=== PATIENT | female | born 1980 | race Caucasian/White ===

== ENCOUNTER 2016-09-24 13:41 | Emergency (ER) | payer MEDICAID ==
[~2016-09-24] VITALS: Ht 170.2 cm; Wt 85.7 kg
[2016-09-24 18:10] VITALS: BP 104/64
== END 2016-09-24 18:10 | disposition home or self-care (01) ==
LOC: ED 13:41
DX: J04.0 Acute laryngitis (principal)
CPT/HCPCS: J1885; J7613; J7644

== ENCOUNTER 2017-03-07 08:16 | Emergency (ER) | payer OTHER ==
[~2017-03-07] VITALS: Ht 170.2 cm; Wt 77.1 kg
[2017-03-07 09:42] VITALS: BP 116/74
== END 2017-03-07 09:42 | disposition home or self-care (01) ==
LOC: ED 08:16
DX: J20.9 Acute bronchitis, unspecified (principal)
CPT/HCPCS: Q0092

== ENCOUNTER 2017-03-14 16:40 | Emergency (ER) | payer OTHER ==
[~2017-03-14] VITALS: Ht 170.2 cm; Wt 84.8 kg
[2017-03-14 16:57] VITALS: Ht 170.2 cm; Wt 84.8 kg
[2017-03-14 18:45] VITALS: BP 116/65
== END 2017-03-14 18:45 | disposition home or self-care (01) ==
LOC: ED 16:40
DX: B34.9 Viral infection, unspecified (principal); J45.909 Unspecified asthma, uncomplicated

== ENCOUNTER 2017-09-30 17:41 | Emergency (ER) | payer OTHER ==
[~2017-09-30] VITALS: Ht 170.2 cm; Wt 80.0 kg
[2017-09-30 18:01] VITALS: Ht 170.2 cm; Wt 80.0 kg
[2017-09-30 21:40] VITALS: BP 129/77
== END 2017-09-30 21:40 | disposition home or self-care (01) ==
LOC: ED 17:41
DX: R05 Cough (principal); R07.89 Other chest pain
CPT/HCPCS: J7613; J7644

== ENCOUNTER 2017-11-20 07:00 | Emergency (ER) | payer OTHER ==
[~2017-11-20] VITALS: Ht 170.2 cm; Wt 77.6 kg
[2017-11-20 07:11] VITALS: Ht 170.2 cm; Wt 77.6 kg
[2017-11-20 07:58] LABS: PLATELET COUNT 277 x10^3mcL (130-400); RED CELL DISTRIBUTION WIDTH 13.2 % (11.5-14.5)
[2017-11-20 08:29] LABS: MONOCYTE 8 % (0-7); SEGMENTED NEUTROPHILS 54 % (37-75)
[2017-11-20 08:30] LABS: BAND NEUTROPHIL 3 % (0-10); BASOPHIL 0 % (0-2); rbc morphology (normal/abnorm) NORMAL (NORMAL)
[2017-11-20 08:31] LABS: PLATELET MORPHOLOGY PLATELETS NORMAL
[2017-11-20 08:32] LABS: CALCIUM 9.2 mg/dL (8.5-10.1); CARBON DIOXIDE 26.1 mmol/L (21-32); CHLORIDE SERUM 103 mmol/L (98-107); CREATININE SERUM 0.7 mg/dL (0.6-1.0); GFR1 > 60 mL/min; GLUCOSE SERUM 98 mg/dL (74-106); SODIUM SERUM 136 mmol/L (136-145)
[2017-11-20 08:37] LABS: ALBUMIN 3.9 g/dL (3.4-5.0); ALKALINE PHOSPHATASE 55 U/L (46-116); ALT/SGPT 20 U/L (14-59); AST/SGOT 21 U/L (15-37); BILIRUBIN TOTAL 0.59 mg/dL (0.20-1.00); CHOLESTEROL 187 mg/dL (<200); PHOSPHOROUS 3.2 mg/dL (2.5-4.9); TOTAL PROTEIN, SERUM 8.2 g/dL (6.4-8.2); URIC ACID 3.9 mg/dL (2.6-6.0)
[2017-11-20 08:41] LABS: HDL CHOLESTEROL 61 mg/dL (40-60)
[2017-11-20 09:18] VITALS: BP 128/72
== END 2017-11-20 09:18 | disposition home or self-care (01) ==
LOC: ED 07:00
PROVIDERS: Emergency Medicine
DX: F41.9 Anxiety disorder, unspecified (principal)
CPT/HCPCS: 83880; J1885; Q0092; Q0162

== ENCOUNTER 2017-11-26 14:31 | Emergency (ER) | payer OTHER ==
[~2017-11-26] VITALS: Ht 170.2 cm; Wt 75.3 kg
[2017-11-26 14:40] VITALS: Ht 170.2 cm; Wt 75.3 kg
[2017-11-26 16:46] LABS: BASOPHIL % 1.5 % (0-2); PLATELET COUNT 353 x10^3mcL (130-400); RED CELL DISTRIBUTION WIDTH 12.7 % (11.5-14.5)
[2017-11-26 17:25] LABS: CALCIUM 9.6 mg/dL (8.5-10.1); CARBON DIOXIDE 24.2 mmol/L (21-32); CHLORIDE SERUM 104 mmol/L (98-107); CREATININE SERUM 0.9 mg/dL (0.6-1.0); GFR1 > 60 mL/min; GLUCOSE SERUM 107 mg/dL (74-106); POTASSIUM SERUM 4.1 mmol/L (3.5-5.1); SODIUM SERUM 141 mmol/L (136-145)
[2017-11-26 17:30] LABS: ALBUMIN 4.7 g/dL (3.4-5.0); ALKALINE PHOSPHATASE 53 U/L (46-116); ALT/SGPT 21 U/L (14-59); AST/SGOT 12 U/L (15-37); LIPASE 94 IU/L (73-393)
[2017-11-26 21:13] VITALS: BP 128/80
== END 2017-11-26 21:13 | disposition home or self-care (01) ==
LOC: ED 14:31
PROVIDERS: Emergency Medicine
DX: R07.2 Precordial pain (principal); R06.00 Dyspnea, unspecified; R11.10 Vomiting, unspecified; R19.7 Diarrhea, unspecified; F41.9 Anxiety disorder, unspecified
CPT/HCPCS: 36415; 83880; 85378; Q0092

== ENCOUNTER 2017-11-28 14:18 | Emergency (ER) | payer OTHER ==
[~2017-11-28] VITALS: Ht 177.8 cm; Wt 74.8 kg
[2017-11-28 14:35] VITALS: Ht 177.8 cm; Wt 74.8 kg
[2017-11-28 16:07] VITALS: BP 128/61
== END 2017-11-28 16:07 | disposition home or self-care (01) ==
LOC: ED 14:18
DX: K21.9 Gastro-esophageal reflux disease without esophagitis (principal); F41.9 Anxiety disorder, unspecified; B96.81 Helicobacter pylori [H. pylori] as the cause of diseases classified elsewhere; J45.909 Unspecified asthma, uncomplicated

== ENCOUNTER 2019-05-13 15:50 | Emergency (ER) | payer OTHER ==
[~2019-05-13] VITALS: Ht 170.2 cm; Wt 73.5 kg
[2019-05-13 16:14] VITALS: Ht 170.2 cm; Wt 73.5 kg
[2019-05-13 17:20] VITALS: BP 118/76
== END 2019-05-13 17:20 | disposition home or self-care (01) ==
LOC: ED 15:50
DX: J45.909 Unspecified asthma, uncomplicated (principal)
CPT/HCPCS: J1100; J7620; Q0092